=== PATIENT | female | born 2000 | race American Indian/Alaskan Native ===

== ENCOUNTER 2020-01-31 19:20 | Emergency (ER) | payer MEDICAID ==
[2020-01-31 20:17] VITALS: BP 134/65
--- NOTE | 2020-01-31 21:24 | XRay Report ---
BILATERAL SHOULDER 6 VIEW(S) INDICATION / CLINICAL INFORMATION: bilateral shoulder pain COMPARISON: None available. FINDINGS: BONES / JOINT(S): No acute fracture or subluxation. No significant arthritis. SOFT TISSUES: No significant abnormality. ADDITIONAL FINDINGS: None. IMPRESSION: No acute osseous abnormality. Signer Name: Christopher Ye MD Signed: 01/31/2020 9:19 PM Workstation Name: [id number]
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
[2020-01-31] MEDS ORDERED: traMADol 50 MG TAB PO ONE (22:40)
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
== END 2020-02-01 00:15 | disposition home or self-care (01) ==
LOC: ED 19:20
DX: S16.1XXA Strain of muscle, fascia and tendon at neck level, initial encounter (principal); S46.912A Strain of unspecified muscle, fascia and tendon at shoulder and upper arm level, left arm, initial encounter; S39.012A Strain of muscle, fascia and tendon of lower back, initial encounter; F17.200 Nicotine dependence, unspecified, uncomplicated; Z79.899 Other long term (current) drug therapy; Z98.890 Other specified postprocedural states; V49.59XA Passenger injured in collision with other motor vehicles in traffic accident, initial encounter; Y92.410 Unspecified street and highway as the place of occurrence of the external cause; Y93.89 Activity, other specified; Y99.8 Other external cause status
CPT/HCPCS: 71045; 72040; 72100; 93005